=== PATIENT | female | born 1995 | race Caucasian/White ===

== ENCOUNTER 2016-07-07 16:03 | Emergency (ER) | payer BC ==
--- NOTE | 2016-07-07 17:45 | ED ---
- HPI Summary HPI Summary: 20 F present with abnormal u/s today. She found out that she was yesterday and today she went to an outpatient clinic for an u/s. They did not see viable and were concerned about ectopic . She denies any bleeding but admits to mild cramping. Her LMP was Dec 11. She admits to occasionally nausea in the morning. She denies any vomiting, fever, or diarrhea. She denies any vaginal discharge. She is . - History of Current Complaint Pain Intensity: 0 <Padma Ca - Last Filed: 07/07/16 21:06> <Ronn Dukes - Last Filed: 07/08/16 19:36> - History of Current Complaint Chief Complaint: EDOBProblems Stated Complaint: POSS PREG Time Seen by Provider: 07/07/16 17:25 - Allergies/Home Medications Allergies/Adverse Reactions: Allergies Allergy/AdvReac Type Severity Reaction Status Date / Time No Known Allergies Allergy Unverified 08/16/13 16:21 PMH/Surg Hx/FS Hx/Imm Hx Endocrine/Hematology History: Denies: Hx Diabetes, Hx Thyroid Disease Respiratory History: Denies: Hx Asthma Infectious Disease History: No Infectious Disease History: Denies: Traveled Outside the [place] in Last 30 Days - Family History Known Family History: Negative: Cardiac Disease - Social History Alcohol Use: Occasionally Substance Use Type: Reports: Marijuana Smoking Status (MU): Never Smoked Tobacco <Padma Ca - Last Filed: 07/07/16 21:06> Review of Systems Negative: Fever Negative: Chest Pain Negative: Shortness Of Breath Positive: Abdominal Pain - cramping pelvic pain, Nausea - occasionally. Negative: Vomiting, Diarrhea All Other Systems Reviewed And Are Negative: Yes <Padma Ca - Last Filed: 07/07/16 21:06> Physical Exam - Physical Exam Triage Information Reviewed: Yes Vital Signs Reviewed: Yes Completion Of Physical Exam Limited Due To: Altered Mental Status Skin: Positive: Warm, Dry Head/Face: Positive: Normal Head/Face Inspection Eyes: Positive: Normal, Conjunctiva Clear ENT: Positive: Normal ENT inspection, Pharynx normal, TMs normal Respiratory/Lung Sounds: Positive: Clear to Auscultation, Breath Sounds Present Cardiovascular: Positive: Normal, RRR Abdomen Description: Positive: Nontender, Soft, Other: - pelvic exam: normal external exam, speculum exam normal, no blood or discharge, os closed Bowel Sounds: Positive: Present <Padma Ca - Last Filed: 07/07/16 21:06> Diagnostics - Vital Signs Vital Signs Temp Pulse Resp BP Pulse Ox 07/07/16 17:22 99.2 F 95 18 104/67 99 07/07/16 16:08 99.0 F 117 20 133/78 100 - Laboratory Result Diagrams: 07/07/16 18:02 07/07/16 18:02 Lab Statement: Any lab studies that have been ordered have been reviewed, and results considered in the medical decision making process. - Ultrasound No standard instances Ultrasound Interpretation: Positive (See Comments) - IMPRESSION: 1. EARLY INTRAUTERINE . NO FETUS OR HEART BEAT IS VISUALIZED. DIFFERENTIAL DIAGNOSIS WOULD INCLUDE EARLY NORMAL INTRAUTERINE OR FAILED . RECOMMEND A FOLLOW-UP TRANSVAGINAL ULTRASOUND IN 1-2 WEEKS TIME TO ASSESS FOR VIABILITY. 2. 2.1 CM LEFT OVARIAN CYST MOST CONSISTENT WITH A CORPUS LUTEUM CYST. Ultrasound Interpretation Completed By: Radiologist <Padma Ca - Last Filed: 07/07/16 21:06> - Vital Signs Vital Signs Temp Pulse Resp BP Pulse Ox 07/07/16 19:43 98.4 F 70 18 110/64 07/07/16 18:42 98.6 F 90 18 107/68 100 07/07/16 17:22 99.2 F 95 18 104/67 99 07/07/16 16:08 99.0 F 117 20 133/78 100 - Laboratory Lab Results: Lab Results 07/07/16 07/07/16 07/07/16 Range/Units 18:02 18:02 18:02 WBC 12.2 H (3.5-10.8) 10^3/ul RBC 4.47 (4.0-5.4) 10^6/ul Hgb 12.7 (12.0-16.0) g/dl Hct 39 (35-47) % MCV 87 (80-97) fL MCH 29 (27-31) pg MCHC 33 (31-36) g/dl RDW 14 (10.5-15) % Plt Count 244 (150-450) 10^3/ul MPV 9 (7.4-10.4) um3 Neut % (Auto) 72.6 (38-83) % Lymph % (Auto) 17.9 L (25-47) % [place] % (Auto) 7.7 (1-9) % Eos % (Auto) 1.3 (0-6) % Baso % (Auto) 0.5 (0-2) % Absolute Neuts (auto) 8.8 H (1.5-7.7) 10^3/ul Absolute Lymphs (auto) 2.2 (1.0-4.8) 10^3/ul Absolute Monos (auto) 0.9 H (0-0.8) 10^3/ul Absolute Eos (auto) 0.2 (0-0.6) 10^3/ul Absolute Basos (auto) 0.1 (0-0.2) 10^3/ul Absolute Nucleated RBC 0 10^3/ul Nucleated RBC % 0 Sodium 134 (133-145) mmol/L Potassium 3.6 (3.5-5.0) mmol/L Chloride 105 (101-111) mmol/L Carbon Dioxide 24 (22-32) mmol/L Anion Gap 5 (2-11) mmol/L BUN 13 (6-24) mg/dL Creatinine 0.60 (0.51-0.95) mg/dL Est GFR ( Amer) 162.3 (>60) Est GFR (Non-Af Amer) 126.2 (>60) BUN/Creatinine Ratio 21.7 H (8-20) Glucose 96 (70-100) mg/dL Calcium 9.2 (8.6-10.3) mg/dL Total Bilirubin 0.40 (0.2-1.0) mg/dL AST 13 (13-39) U/L ALT 11 (7-52) U/L Alkaline Phosphatase 53 (34-104) U/L Total Protein 7.1 (6.4-8.9) g/dL Albumin 4.2 (3.2-5.2) g/dL Globulin 2.9 (2-4) g/dL Albumin/Globulin Ratio 1.4 (1-3) Progesterone ng/mL Beta HCG, Quant 28058.00 mIU/mL Urine Color Yellow Urine Appearance Clear Urine pH 5.0 (5-9) Ur Specific [place] 1.024 (1.010-1.030) Urine Protein Negative (Negative) Urine Ketones Negative (Negative) Urine Blood Negative (Negative) Urine Nitrate Negative (Negative) Urine Bilirubin Negative (Negative) Urine Urobilinogen Negative (Negative) Ur Leukocyte Esterase Negative (Negative) Urine Glucose Negative (Negative) C.trachomatis (Amp Det) (Negative) N.gonorrhoeae (Amp Det) (Negative) T.vaginalis (Amp Det) (Negative) Blood Type 07/07/16 07/07/16 07/07/16 Range/Units 18:02 18:02 19:35 WBC (3.5-10.8) 10^3/ul RBC (4.0-5.4) 10^6/ul Hgb (12.0-16.0) g/dl Hct (35-47) % MCV (80-97) fL MCH (27-31) pg MCHC (31-36) g/dl RDW (10.5-15) % Plt Count (150-450) 10^3/ul MPV (7.4-10.4) um3 Neut % (Auto) (38-83) % Lymph % (Auto) (25-47) % [place] % (Auto) (1-9) % Eos % (Auto) (0-6) % Baso % (Auto) (0-2) % Absolute Neuts (auto) (1.5-7.7) 10^3/ul Absolute Lymphs (auto) (1.0-4.8) 10^3/ul Absolute Monos (auto) (0-0.8) 10^3/ul Absolute Eos (auto) (0-0.6) 10^3/ul Absolute Basos (auto) (0-0.2) 10^3/ul Absolute Nucleated RBC 10^3/ul Nucleated RBC % Sodium (133-145) mmol/L Potassium (3.5-5.0) mmol/L Chloride (101-111) mmol/L Carbon Dioxide (22-32) mmol/L Anion Gap (2-11) mmol/L BUN (6-24) mg/dL Creatinine (0.51-0.95) mg/dL Est GFR ( Amer) (>60) Est GFR (Non-Af Amer) (>60) BUN/Creatinine Ratio (8-20) Glucose (70-100) mg/dL Calcium (8.6-10.3) mg/dL Total Bilirubin (0.2-1.0) mg/dL AST (13-39) U/L ALT (7-52) U/L Alkaline Phosphatase (34-104) U/L Total Protein (6.4-8.9) g/dL Albumin (3.2-5.2) g/dL Globulin (2-4) g/dL Albumin/Globulin Ratio (1-3) Progesterone 16.4 ng/mL Beta HCG, Quant mIU/mL Urine Color Urine Appearance Urine pH (5-9) Ur Specific [place] (1.010-1.030) Urine Protein (Negative) Urine Ketones (Negative) Urine Blood (Negative) Urine Nitrate (Negative) Urine Bilirubin (Negative) Urine Urobilinogen (Negative) Ur Leukocyte Esterase (Negative) Urine Glucose (Negative) C.trachomatis (Amp Det) Negative (Negative) N.gonorrhoeae (Amp Det) Negative (Negative) T.vaginalis (Amp Det) Negative (Negative) Blood Type O Positive Result Diagrams: 07/07/16 18:02 07/07/16 18:02 Lab Statement: Any lab studies that have been ordered have been reviewed, and results considered in the medical decision making process. <Ronn Dukes - Last Filed: 07/08/16 19:36> Course/Dx - Course Course Of Treatment: 20 F presents with abnormal u/s at outpatient ultrasound place. Normal pelvic and abdominal exam, u/s showed early uterine , no ectopic seen, explained could be normal just early or could end in spontanous , will have tend bhcg level and follow up with obgyn, patient agrees with plan - Differential Diagnosis/HQI/PQRI: Spontaneous , Threatened , Ovarian Cyst, Other: - <Padma Ca - Last Filed: 07/07/16 21:06> - Course Assessment/Plan: I was available for consultation. This patient was seen by mid level provider. The patient was not presented, seen, or examined by me. WR. <Ronn Dukes - Last Filed: 07/08/16 19:36> - Diagnoses Provider Diagnoses: Discharge <Padma Ca - Last Filed: 07/07/16 21:06> <Ronn Dukes Last Filed: 07/08/16 19:36> - Discharge Plan Condition: Good Disposition: HOME Patient Education Materials: Threatened Miscarriage (ED) Referrals: Citlaly Gallardo MD [Primary Care Provider] - Brooklyn Pabon MD [Medical Doctor] - Additional Instructions: Get lab work done in 48 hours Can take Tylenol for pain every 6 hours Follow up with obgyn Return to ED if develop vaginal bleeding or any new or worsening symptoms
[2016-07-07 18:17] LABS: Hematocrit 39 % (35-47); Hemoglobin 12.7 g/dl (12.0-16.0); Mean Corpuscular HGB Conc 33 g/dl (31-36); Mean Corpuscular Hemoglobin 29 pg (27-31); Mean Corpuscular Volume 87 fL (80-97); Mean Platelet Volume 9 um3 (7.4-10.4); Red Blood Count 4.47 10^6/ul (4.0-5.4); Red Cell Distribution Width 14 % (10.5-15); White Blood Count 12.2 10^3/ul (3.5-10.8)
[2016-07-07 18:19] LABS: Urine Bilirubin Negative (Negative); Urine Glucose Negative (Negative); Urine Nitrite Negative (Negative)
[2016-07-07 18:39] LABS: Albumin 4.2 g/dL (3.2-5.2); BUN/Creatinine Ratio 21.7 (8-20); Calcium 9.2 mg/dL (8.6-10.3); EGFR African American 162.3 (>60); EGFR Non-African American 126.2 (>60); Globulin 2.9 g/dL (2-4); Potassium 3.6 mmol/L (3.5-5.0); Total Bilirubin 0.4 mg/dL (0.2-1.0); Total Protein 7.1 g/dL (6.4-8.9)
--- NOTE | 2016-07-07 19:02 | RAD ---
Indication: Cramping, . COMPARISON: There are no prior studies available for comparison. TECHNIQUE: Multiple real-time transvaginal images of the pelvis were obtained. FINDINGS: This exam demonstrates an early intrauterine . There is a yolk sac seen. No pole or heartbeat is visualized. The mean sac diameter measured 1.80 cm corresponding to an estimate gestational age of 6 weeks 5 days. The right ovary measured 2.5 x 2.2 x 1.9 cm. The left ovary measured 3.8 x 3.2 x 3.3 cm. There is vascular flow within both ovaries. There is a simple cyst present within the left ovary measuring 2.0 x 1.8 x 2.1 cm. No free intraperitoneal fluid is seen. IMPRESSION: 1. EARLY INTRAUTERINE . NO FETUS OR HEART BEAT IS VISUALIZED. DIFFERENTIAL DIAGNOSIS WOULD INCLUDE EARLY NORMAL INTRAUTERINE OR FAILED . RECOMMEND A FOLLOW-UP TRANSVAGINAL ULTRASOUND IN 1-2 WEEKS TIME TO ASSESS FOR VIABILITY. 2. 2.1 CM LEFT OVARIAN CYST MOST CONSISTENT WITH A CORPUS LUTEUM CYST.
[2016-07-07 19:44] VITALS: BP 110/64
== END 2016-07-07 19:43 | disposition home or self-care (01) ==
LOC: ED 16:03
DX: O34.81 Maternal care for other abnormalities of pelvic organs, first trimester (principal); Z34.91 Encounter for supervision of normal pregnancy, unspecified, first trimester; Z3A.01 Less than 8 weeks gestation of pregnancy
CPT/HCPCS: 36415; 76801; 80053; 81003; 84144; 84702; 85025; 86900; 86901; 87480; 87491; 87510; 87591; 87661; 99281